=== PATIENT | male | born 1955 | race Caucasian/White ===

== ENCOUNTER → 2017-05-07 18:37 | Emergency (ER) | payer MEDICARE, MEDICAID ==
[~2017-05-07 18:37] MED LIST: Ondansetron ODT TAB* 4 MG PO ONE
--- NOTE | 2017-05-07 21:21 | UC ---
Abdominal Pain Male HPI - HPI Summary HPI Summary: ONSET OF N/V/D THIS MORNING 11AM. GIRLFRIEND WITH SIMILAR SX. NO FEVER. NO URUI SX. APPETITE DOWN. 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 Onset/Duration: Sudden Onset, Lasting Hours, Still Present Timing: Constant Severity Initially: Moderate Severity Currently: Moderate Pain Intensity: 10 - SITTING IN ROOM IN NO ACUTE DISTRESS Pain Scale Used: 0-10 Numeric Location: Diffuse Radiates: No Character: Aching, Cramping Aggravating Factor(s): Movement Alleviating Factor(s): Nothing Associated Signs And Symptoms: Positive: Decreased Appetite, Nausea, Vomiting, Diarrhea - Allergies/Home Medications Allergies/Adverse Reactions: Allergies Allergy/AdvReac Type Severity Reaction Status Date / Time Amoxicillin Allergy Intermediate Rash Verified 05/07/17 19:28 Aspirin Allergy Intermediate Rash Verified 05/07/17 19:28 Ampicillin Allergy Airway Verified 05/07/17 19:28 Obstruction Coconut Fatty Acids Allergy Unknown Verified 05/07/17 19:28 Reaction Details Ibuprofen Allergy Airway Verified 05/07/17 19:28 Obstruction Penicillins [PCN] Allergy Airway Verified 05/07/17 19:28 Obstruction peanuts Allergy Severe Anaphylatic Uncoded 05/07/17 19:28 Shock bananas Allergy Unknown Unknown Uncoded 05/07/17 19:28 Reaction Details PMH/Surg Hx/FS Hx/Imm Hx Cardiovascular History: Hypertension Respiratory History: Asthma - Surgical History Surgical History: Yes Surgery Procedure, Year, and Place: PT fell off roof, had 2 chest tubes and was hospitalized. wrist surgery - Family History Known Family History: Positive: Hypertension - Social History Alcohol Use: None Substance Use Type: None Smoking Status (MU): Former Smoker - Immunization History Most Recent Influenza Vaccination: never Most Recent Tetanus Shot: 2013 Most Recent Pneumonia Vaccination: never Review of Systems Constitutional: Negative Respiratory: Negative Cardiovascular: Negative Gastrointestinal: Abdominal Pain, Vomiting, Diarrhea, Nausea Genitourinary: Negative Neurological: Headache All Other Systems Reviewed And Are Negative: Yes Physical Exam Triage Information Reviewed: Yes Appearance: Well-Appearing, No Pain Distress, Well-Nourished Vital Signs: Initial Vital Signs Temp 99.4 F 05/07/17 19:23 Pulse 93 05/07/17 19:23 Resp 20 05/07/17 19:23 Pulse Ox 96 05/07/17 19:23 Vital Signs Reviewed: Yes Eyes: Positive: Conjunctiva Clear ENT: Positive: Hearing grossly normal Neck: Positive: Supple Respiratory Exam: Normal Cardiovascular: Positive: Tachycardia Abdomen Description: Positive: Soft, Other: - MILDLY TENDER DIFFUSELY. Negative : CVA Tenderness (R), CVA Tenderness (L), Distended, Guarding Bowel Sounds: Positive: Present Musculoskeletal: Positive: No Edema Neurological: Positive: Alert Psychological: Positive: Age Appropriate Behavior Skin: Negative: rashes Abd Pain Male Course/Dx - Differential Dx/Clinical Impression Provider Diagnoses: ACUTE GASTROENTERITIS Discharge - Discharge Plan Condition: Stable Disposition: HOME Prescriptions: Ondansetron ODT TAB* [Zofran Odt TAB*] 4 mg PO Q6H PRN #20 tab.odt PRN Reason: Nausea/Vomiting Patient Education Materials: Gastroenteritis (ED) Referrals: Yi Guzman MD [Primary Care Provider] - If Needed Additional Instructions: GASTROENTERITIS: You have gastroenteritis ("intestinal flu"). This disease is usually caused by a virus. There is no specific treatment. The disease will end by itself. For now, the main danger is dehydration. Give clear liquids. Examples include Pedialyte, Gatorade, clear broth, juices, flat sodas, and jello water. Medications may be prescribed by the physician for special cases. Once tolerated, the clear liquid diet may be supplemented with rice, cereal, toast, applesauce, or bananas. Call the physician or go to the hospital if vomiting increases or blood appears in the bowel movement or vomitus; if you fail to improve, or if signs of dehydration occur (tongue and mouth become dry, lethargy). ENSURE ADEQUATE HYDRATION. CLEAR LIQUIDS, BLAND DIET. AVOID CAFFEINE, DAIRY, GREASY, SPICY FOODS. ONCE YOU ARE TOLERATING CLEAR LIQUIDS YOU CAN ADVANCE TO SIMPLE, BLAND FOODS.
== END | disposition home or self-care (01) ==
LOC: UCEAST 18:37
DX: K52.9 Noninfective gastroenteritis and colitis, unspecified (principal); I10 Essential (primary) hypertension; J45.909 Unspecified asthma, uncomplicated; Z87.891 Personal history of nicotine dependence
CPT/HCPCS: 99212; A9270-GY; G0463

== ENCOUNTER 2017-06-15 19:25 | Emergency (ER) | payer MEDICARE, MEDICAID ==
[2017-06-15 21:04] VITALS: BP 159/95
--- NOTE | 2017-06-15 21:12 | UC ---
Respiratory Complaint HPI - HPI Summary HPI Summary: Pt presents with cough, sinus congestion, post nasal drip, body aches, and fatigue that started yesterday. He has been taking tylenol for his symptoms with mild relief. Denies SOB, chest pain, abdominal pain, diarrhea. - History of Current Complaint Chief Complaint: UCRespiratory Stated Complaint: COLD, CONGESTION Time Seen by Provider: 06/15/17 21:11 Hx Obtained From: Patient Onset/Duration: Sudden Onset Severity Initially: Moderate Severity Currently: Moderate Pain Intensity: 8 Pain Scale Used: 0-10 Numeric Character: Cough: Nonproductive - Allergies/Home Medications Allergies/Adverse Reactions: Allergies Allergy/AdvReac Type Severity Reaction Status Date / Time Amoxicillin Allergy Intermediate Rash Verified 06/15/17 21:04 Aspirin Allergy Intermediate Rash Verified 06/15/17 21:04 Ampicillin Allergy Airway Verified 06/15/17 21:04 Obstruction Coconut Fatty Acids Allergy Unknown Verified 06/15/17 21:04 Reaction Details Ibuprofen Allergy Airway Verified 06/15/17 21:04 Obstruction Penicillins [PCN] Allergy Airway Verified 06/15/17 21:04 Obstruction peanuts Allergy Severe Anaphylatic Uncoded 05/07/17 19:28 Shock bananas Allergy Unknown Unknown Uncoded 05/07/17 19:28 Reaction Details Home Medications: Home Medications Acetaminophen [Mapap] 1,500 mg PO ONCE PRN 06/15/17 [History Confirmed 06/15/17] PMH/Surg Hx/FS Hx/Imm Hx - Additional Past Medical History Additional PMH: Chronic pain Endocrine History: Dyslipidemia Cardiovascular History: Cardiac Disease, Hypertension GI/ History: Gastroesophageal Reflux Psychological History: Anxiety - Surgical History Surgical History: Yes Surgery Procedure, Year, and Place: PT fell off roof, had 2 chest tubes and was hospitalized. wrist surgery - Family History Known Family History: Positive: Hypertension - Social History Lives: With Family Alcohol Use: None Substance Use Type: None Smoking Status (MU): Former Smoker - Immunization History Most Recent Influenza Vaccination: never Most Recent Tetanus Shot: 2013 Most Recent Pneumonia Vaccination: never Review of Systems Constitutional: Fatigue, Other - Body aches Skin: Negative Eyes: Negative ENT: Negative Respiratory: Cough Cardiovascular: Negative Gastrointestinal: Negative Musculoskeletal: Negative Neurological: Negative Psychological: Negative All Other Systems Reviewed And Are Negative: Yes Physical Exam Triage Information Reviewed: Yes Appearance: Well-Appearing, No Pain Distress, Well-Nourished Vital Signs: Initial Vital Signs Temp 101.3 F 06/15/17 21:00 Pulse 95 06/15/17 21:00 Resp 18 06/15/17 21:00 BP 159/95 06/15/17 21:00 Pulse Ox 100 06/15/17 21:00 Vital Signs Reviewed: Yes Eyes: Positive: Conjunctiva Clear. Negative: Conjunctiva Inflamed, Discharge ENT: Positive: Hearing grossly normal, Pharynx normal, Nasal congestion, TMs normal, Uvula midline. Negative: Pharyngeal erythema, Nasal drainage, TM bulging, TM dull, TM red, Tonsillar swelling, Tonsillar exudate, Sinus tenderness Neck: Positive: Supple, Nontender, No Lymphadenopathy Respiratory: Positive: Chest non-tender, Lungs clear, Normal breath sounds, No respiratory distress, No accessory muscle use Cardiovascular: Positive: RRR, No Murmur, Pulses Normal Neurological: Positive: Alert. Negative: Fatigued Psychological: Positive: Age Appropriate Behavior Skin: Negative: rashes UC Diagnostic Evaluation - Laboratory O2 Sat by Pulse Oximetry: 100 Respiratory Course/Dx - Course Course Of Treatment: Flu swab positive for B - treat with tamiflu - Differential Dx/Diagnosis Provider Diagnoses: Influenza B Discharge - Discharge Plan Condition: Stable Disposition: HOME Prescriptions: Oseltamivir CAP* [Tamiflu CAP*] 75 mg PO BID #10 cap Patient Education Materials: Influenza (DC) Referrals: Yi Guzman MD [Primary Care Provider] - Additional Instructions: If you develop a fever, shortness of breath, chest pain, new or worsening symptoms - please call your PCP or go to the ED. Your blood pressure was high at todays visit. Please see your primary provider within 4 weeks for recheck and re-evaluation.
== END 2017-06-15 21:42 | disposition home or self-care (01) ==
LOC: UCEAST 19:25
DX: J10.1 Influenza due to other identified influenza virus with other respiratory manifestations (principal); G89.29 Other chronic pain; E78.5 Hyperlipidemia, unspecified; I10 Essential (primary) hypertension; K21.9 Gastro-esophageal reflux disease without esophagitis; F41.9 Anxiety disorder, unspecified; Z87.891 Personal history of nicotine dependence; Z88.0 Allergy status to penicillin; Z88.6 Allergy status to analgesic agent; Z88.3 Allergy status to other anti-infective agents; Z91.018 Allergy to other foods
CPT/HCPCS: 87502; 99212; G0463

== ENCOUNTER 2019-01-21 21:48 | Emergency (ER) | payer MEDICARE, MEDICAID ==
[2019-01-21] MEDS ORDERED: Glucagon* 1 MG VIAL IM ONE ×2 (22:10→22:48)
--- NOTE | 2019-01-21 22:12 | ED ---
Throat Pain/Nasal Congestion - HPI Summary HPI Summary: Patient complains of possible watermelon stuck in his throat. States pain at the base of his neck anteriorly, pain with swallowing. Patient tolerating secretions, no apparent distress. Denies SOB, N/V, Abdominal pain. - History of Current Complaint Chief Complaint: EDForeignBodyEsophag Time Seen by Provider: 01/21/19 22:06 Hx Obtained From: Patient Onset/Duration: Sudden Onset Severity: Moderate Associated Signs And Symptoms: Positive: Dysphagia Cough: None - Allergies/Home Medications Allergies/Adverse Reactions: Allergies Allergy/AdvReac Type Severity Reaction Status Date / Time MS Amoxicillin [Amoxicillin] Allergy Intermediate Rash Verified 06/15/17 21:04 MS Aspirin [Aspirin] Allergy Intermediate Rash Verified 06/15/17 21:04 MS Ampicillin [Ampicillin] Allergy Airway Verified 06/15/17 21:04 Obstruction MS Coconut Fatty Acids Allergy Unknown Verified 06/15/17 21:04 [Coconut Fatty Acids] Reaction Details MS Ibuprofen [Ibuprofen] Allergy Airway Verified 06/15/17 21:04 Obstruction MS Penicillins [PCN] Allergy Airway Verified 06/15/17 21:04 Obstruction peanuts Allergy Severe Anaphylatic Uncoded 05/07/17 19:28 Shock bananas Allergy Unknown Unknown Uncoded 05/07/17 19:28 Reaction Details Home Medications: Home Medications ALPRAZolam TAB* [Xanax TAB*] 0.25 mg PO TID PRN 01/21/19 [History Confirmed 10/04] Albuterol HFA INHALER* [Ventolin HFA Inhaler*] 2 puff INH Q4H PRN 01/21/19 [ History Confirmed 01/21/19] Fluticasone HFA 220 mcg(NF) [Flovent HFA 220 Mcg(NF)] 1 puff INH BID 01/21/19 [ History Confirmed 01/21/19] HYDROcodone/ACETAMIN 5-325 MG* [[place] 5-325 TAB*] 1 tab PO Q8H PRN 01/21/19 [ History Confirmed 01/21/19] LoraTADine TAB(NF) [Claritin 10 MG TAB(NF)] 10 mg PO DAILY 01/21/19 [History Confirmed 01/21/19] Simvastatin TAB(NF) [Zocor(NF)] 10 mg PO DAILY 01/21/19 [History Confirmed 01/21] hydrOXYzine HCL TAB* [Atarax 25 MG TAB*] 25 mg PO BID 01/21/19 [History Confirmed 01/21/19] PMH/Surg Hx/FS Hx/Imm Hx Endocrine/Hematology History: Denies: Hx Diabetes Cardiovascular History: Reports: Hx Hypercholesterolemia, Hx Hypertension Denies: Hx Congestive Heart Failure Respiratory History: Reports: Hx Asthma, Hx Chronic Bronchitis, Hx Pneumonia, Hx Seasonal Allergies Denies: Hx Chronic Obstructive Pulmonary Disease (COPD) GI History: Reports: Hx Gastroesophageal Reflux Disease Denies: Hx Ulcer History: Denies: Hx Dialysis, Hx Renal Disease Musculoskeletal History: Reports: Hx Arthritis Sensory History: Denies: Hx Eye Prosthesis Opthamlomology History: Denies: Hx Legally Blind EENT History: Denies: Hx Deafness Neurological History: Reports: Hx Migraine Psychiatric History: Reports: Hx Anxiety, Hx Depression, Hx Panic Disorder - Surgical History Surgery Procedure, Year, and Place: PT fell off roof, had 2 chest tubes and was hospitalized. wrist surgery - Immunization History Date of Tetanus Vaccine: 2008 Date of Influenza Vaccine: none Infectious Disease History: No Infectious Disease History: Reports: Hx of Known/Suspected MRSA - 5 yrs ago Denies: Hx Clostridium Difficile, Hx Hepatitis, Hx Human Immunodeficiency Virus (HIV), Hx Shingles, Hx Tuberculosis, Hx Known/Suspected VRE, Hx Known/ Suspected VRSA, History Other Infectious Disease, Traveled Outside the [place] in Last 30 Days - Family History Known Family History: Positive: Hypertension - Social History Alcohol Use: None Substance Use Type: Reports: None Smoking Status (MU): Former Smoker Review of Systems Constitutional: Negative Eyes: Negative Positive: Sore Throat Cardiovascular: Negative Respiratory: Negative Gastrointestinal: Negative Genitourinary: Negative Musculoskeletal: Negative Skin: Negative Neurological: Negative Psychological: Normal All Other Systems Reviewed And Are Negative: Yes Physical Exam Triage Information Reviewed: Yes Vital Signs On Initial Exam: Initial Vitals Temp Pulse Resp BP Pulse Ox 98.1 F 67 18 151/88 96 01/21/19 22:00 01/21/19 22:00 01/21/19 22:00 01/21/19 22:00 01/21/19 22:00 Vital Signs Reviewed: Yes Appearance: Positive: Well-Appearing Skin: Positive: Warm Head/Face: Positive: Normal Head/Face Inspection Eyes: Positive: Normal ENT: Positive: Normal ENT inspection Neck: Positive: Supple Respiratory/Lung Sounds: Positive: Clear to Auscultation Cardiovascular: Positive: Normal Abdomen Description: Positive: Nontender Musculoskeletal: Positive: Normal Neurological: Positive: Normal Psychiatric: Positive: Normal AVPU Assessment: Alert - [place]em[place] Coma Scale Best Eye Response: 4 - Spontaneous Best Motor Response: 6 - Obeys Commands Best Verbal Response: 5 - Oriented Coma Scale Total: 15 Diagnostics - Vital Signs Vital Signs Temp Pulse Resp BP Pulse Ox 01/21/19 22:00 98.1 F 67 18 151/88 96 - Laboratory Lab Statement: Any lab studies that have been ordered have been reviewed, and results considered in the medical decision making process. EENT Course/Dx - Course Course Of Treatment: Patient complains of possible watermelon stuck in his throat. States pain at the base of his neck anteriorly, pain with swallowing. Patient tolerating secretions, no apparent distress. Denies SOB, N/V, Abdominal pain. Vital signs within normal limits. Glucagon 1 mg IM 2. Patient then tolerating applesauce and 2 cups of water without issue. - Diagnoses Provider Diagnoses: Esophageal foreign body Discharge ED - Sign-Out/Discharge Documenting (check all that apply): Patient Departure Patient Received Moderate/Deep Sedation with Procedure: No - Discharge Plan Condition: Stable Disposition: HOME Patient Education Materials: Esophageal Foreign Body (ED) Referrals: Yi Guzman MD [Primary Care Provider] - Additional Instructions: Return to the ED for any new or worsening symptoms. - Billing Disposition and Condition Condition: STABLE Disposition: Home
[2019-01-21] MEDS ORDERED: LORazepam TAB(*) 1 MG PO ONE (22:52)
[2019-01-21] MEDS ORDERED: ALPRAZolam TAB* 0.25 MG PO ONE (22:57)
[2019-01-22 00:09] VITALS: BP 146/97
== END 2019-01-22 00:08 | disposition home or self-care (01) ==
LOC: ED 21:48
DX: T18.108A Unspecified foreign body in esophagus causing other injury, initial encounter (principal); X58.XXXA Exposure to other specified factors, initial encounter; Y92.9 Unspecified place or not applicable; E78.00 Pure hypercholesterolemia, unspecified; I10 Essential (primary) hypertension; J45.909 Unspecified asthma, uncomplicated; F41.0 Panic disorder [episodic paroxysmal anxiety]; Z88.6 Allergy status to analgesic agent; Z91.010 Allergy to peanuts; Z88.0 Allergy status to penicillin; Z91.018 Allergy to other foods; Z87.891 Personal history of nicotine dependence
CPT/HCPCS: 96372; 99283; A9270-GY; J1610

== ENCOUNTER 2019-04-01 17:30 | Emergency (ER) | payer MEDICARE, MEDICAID ==
[2019-04-01 18:10] VITALS: BP 138/78
--- NOTE | 2019-04-01 18:27 | UC ---
Shoulder Pain HPI - HPI Summary HPI Summary: 63-year-old male comes in with a chief complaint of right shoulder pain after slipping and falling couple hours ago. Patient reports that he slipped and fell landed on his right shoulder. It hurts right in the right shoulder. He has a hard time trying to raise the shoulder up. No numbness. No head pain no neck pain no shortness of breath. No complaint of any other injuries. He is not on any blood thinners. - History of Current Complaint Chief Complaint: UCUpperExtremity Stated Complaint: R SHOULDER INJURY Time Seen by Provider: 04/01/19 17:43 Pain Intensity: 5 - Allergies/Home Medications Allergies/Adverse Reactions: Allergies Allergy/AdvReac Type Severity Reaction Status Date / Time amoxicillin Allergy Severe Rash Verified 04/01/19 18:15 ampicillin Allergy Severe Rash Verified 04/01/19 18:15 aspirin Allergy Severe Rash Verified 04/01/19 18:15 coconut Allergy Severe unk Verified 04/01/19 18:15 ibuprofen Allergy Severe airway Verified 04/01/19 18:15 Penicillins Allergy Severe airway Verified 04/01/19 18:15 peanuts Allergy Severe Anaphylatic Uncoded 04/01/19 18:15 Shock bananas Allergy Unknown Unknown Uncoded 04/01/19 18:15 Reaction Details PMH/Surg Hx/FS Hx/Imm Hx Previously Healthy: Yes Endocrine History: Dyslipidemia Cardiovascular History: Hypertension Respiratory History: Asthma GI/ History: Gastroesophageal Reflux - Surgical History Surgical History: Yes Surgery Procedure, Year, and Place: PT fell off roof, had 2 chest tubes and was hospitalized. wrist surgery - Family History Known Family History: Positive: Hypertension - Social History Alcohol Use: None Substance Use Type: None Smoking Status (MU): Former Smoker - Immunization History Most Recent Influenza Vaccination: never Most Recent Tetanus Shot: 2013 Most Recent Pneumonia Vaccination: never Review of Systems All Other Systems Reviewed And Are Negative: Yes Constitutional: Positive: Negative Skin: Positive: Negative Eyes: Positive: Negative ENT: Positive: Negative Respiratory: Positive: Negative Cardiovascular: Positive: Negative Gastrointestinal: Positive: Negative Motor: Positive: Decreased ROM - SEE HPI Neurovascular: Positive: Negative Musculoskeletal: Positive: Other: - SEE HPI Neurological: Positive: Negative Psychological: Positive: Negative Is Patient Immunocompromised?: No Physical Exam Triage Information Reviewed: Yes Appearance: Well-Appearing, No Pain Distress, Well-Nourished Vital Signs: Initial Vital Signs Temp 100.2 F 04/01/19 18:06 Pulse 89 04/01/19 18:06 Resp 17 04/01/19 18:06 BP 138/78 04/01/19 18:06 Pulse Ox 95 04/01/19 18:06 Vital Signs Reviewed: Yes Eye Exam: Normal Eyes: Positive: Conjunctiva Clear, Other: - PERRLA EOMI. No photophobia. ENT: Positive: TMs normal - No hemotympanum, Other - Scalp and head are nontender to palpation there is no deformities in the head Neck: Positive: Supple, Nontender Respiratory: Positive: Chest non-tender, Lungs clear, Normal breath sounds, No respiratory distress Cardiovascular: Positive: RRR Musculoskeletal: Positive: Other: - Normal bilateral radial pulses. Normal sensation and capillary refill both arms. Fingers wrists and elbows have full range of motion bilaterally. Patient cannot raise his right shoulder up above more than about 30 on the right side. Left has full range of motion. Neurological: Positive: Alert Psychological: Positive: Age Appropriate Behavior Skin Exam: Normal Shoulder Course/Dx - Course Course Of Treatment: Discussed the x-rays with the patient. I do not see any fractures radiologist reading is pending. With decreased range of motion I am concerned about a rotator cuff injury. Patient declined a sling. I did discuss with him to maintain the range of motion is best possible and to follow-up with orthopedics. No evidence of any head or neck or chest injury on exam or by history. Patient's to get reevaluated sooner if worse or any questions or concerns. - Differential Dx/Diagnosis Provider Diagnosis: Right shoulder pain Discharge ED - Sign-Out/Discharge Documenting (check all that apply): Patient Departure All imaging exams completed and their final reports reviewed: No - Discharge Plan Condition: Stable Disposition: HOME Patient Education Materials: Shoulder Pain (ED) Referrals: Yi Guzman MD [Primary Care Provider] - Huang Cesar MD [Medical Doctor] - Additional Instructions: FOLLOW UP WITH ORTHOPEDICS. CALL TOMORROW TO ARRANGE FOLLOW UP. GET REEVALUATED SOONER IF NOT IMPROVED OR WORSE OR ANY QUESTIONS OR CONCERNS. - Billing Disposition and Condition Condition: STABLE Disposition: Home
--- NOTE | 2019-04-02 08:51 | UC ---
- Progress Note Progress Note: RADIOLOGY REPORT REVIEWED. NO EVIDENCE FOR FRACTURE. NO CHANGE IN MANAGEMENT. Course/Dx - Diagnoses Provider Diagnoses: Right shoulder pain Discharge ED - Sign-Out/Discharge Documenting (check all that apply): Post-Discharge Follow Up All imaging exams completed and their final reports reviewed: Yes - Discharge Plan Condition: Stable Disposition: HOME Patient Education Materials: Shoulder Pain (ED) Referrals: Huang Cesar MD [Medical Doctor] - Yi Guzman MD [Primary Care Provider] - Additional Instructions: FOLLOW UP WITH ORTHOPEDICS. CALL TOMORROW TO ARRANGE FOLLOW UP. GET REEVALUATED SOONER IF NOT IMPROVED OR WORSE OR ANY QUESTIONS OR CONCERNS. - Billing Disposition and Condition Condition: STABLE Disposition: Home
== END 2019-04-01 19:00 | disposition home or self-care (01) ==
LOC: UCEAST 17:30
DX: M25.511 Pain in right shoulder (principal); I10 Essential (primary) hypertension; J45.909 Unspecified asthma, uncomplicated; Z87.891 Personal history of nicotine dependence; Z88.0 Allergy status to penicillin; Z88.6 Allergy status to analgesic agent; Z91.018 Allergy to other foods; Z91.010 Allergy to peanuts
CPT/HCPCS: 99211; G0463